=== PATIENT | female | born 1980 | race Two or more races ===

== ENCOUNTER 2017-06-12 17:32 | Emergency (ER) | payer OTHER ==
[~2017-06-12] VITALS: Ht 165.1 cm; Wt 70.0 kg
[2017-06-12 18:51] LABS: BASOPHILS # (AUTO) 0.02 x10^3/uL (0-0.1); BASOPHILS % (AUTO) 0 % (0-1); EOSINOPHILS # (AUTO) 0.04 x10^3/uL (0-0.4); EOSINOPHILS % (AUTO) 0 % (1-7); LYMPHOCYTES % (AUTO) 10 % (22-44); MD NO; MEAN CORPUSCULAR HEMOGLOBIN 21.5 pg (27.0-34.8); MEAN CORPUSCULAR HGB CONC 31.3 g/dL (32.4-35.8); MEAN CORPUSCULAR VOLUME 68.8 fL (80-100); MEAN PLATELET VOLUME 8.7 fL (7.4-10.4); MONOCYTES # (AUTO) 0.46 x10^3/uL (0.2-0.8); MONOCYTES % (AUTO) 4 % (2-9); NEUTROPHILS # (AUTO) 8.99 x10^3/uL (1.8-6.8); NEUTROPHILS % (AUTO) 86 % (42-75); PLATELET COUNT 417 x10^3/uL (130-400); RED BLOOD COUNT 4.17 x10^6/uL (3.82-5.3); RED CELL DISTRIBUTION WIDTH 17.3 % (9.6-15.2)
[2017-06-12 19:00] LABS: ALANINE AMINOTRANSFERASE 30 U/L (12-78); ALBUMIN 3.6 g/dL (3.4-5.0); ANION GAP 7 mmol/L (5-15); CALCIUM 8.5 mg/dL (8.5-10.1); CHLORIDE 108 mmol/L (98-107); CREATININE 0.51 mg/dL (0.55-1.02)
[2017-06-12 19:05] LABS: ALKALINE PHOSPHATASE 92 U/L (45-117); BILIRUBIN,TOTAL 0.3 mg/dL (0.2-1.0); TOTAL PROTEIN 7.9 g/dL (6.4-8.2)
[2017-06-12 21:02] LABS: CULTURE INDICATED? YES; MICROSCOPIC INDICATED
[2017-06-12] MEDS ORDERED: ACETAMINOPHEN 325 MG TABLET PO ONE (21:30)
[2017-06-12] MEDS ORDERED: ACETAMINOPHEN 325 MG TABLET ONE (21:58)
[2017-06-12 22:36] VITALS: BP 137/81
== END 2017-06-12 22:39 | disposition home or self-care (01) ==
LOC: ED 22:30
DX: O26.891 Other specified pregnancy related conditions, first trimester (principal); O34.80 Maternal care for other abnormalities of pelvic organs, unspecified trimester; N83.202 Unspecified ovarian cyst, left side
CPT/HCPCS: 36415; 76830; 80053; 81001; 83690; 84702; 85025; 86901; 87086; 99285

== ENCOUNTER 2018-07-12 19:23 | Emergency (ER) | payer SELFPAY ==
[~2018-07-12] VITALS: Ht 160 cm; Wt 70.9 kg
--- NOTE | 2018-07-12 19:38 | NUR ---
PT UP TO RR WITH STEADY GAIT, URINE CUP PROVIDED
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
[2018-07-12] MEDS ORDERED: KETOROLAC 30 MG/1 ML ONE (19:53)
--- NOTE | 2018-07-12 19:57 | NUR ---
PT MEDICATED PER MAR, PROVIDED PT WITH WARM BLANKET, CALL LIGHT WITHIN REACH, AWAITING ULTRASOUND AT THIS TIME
[2018-07-12 19:59] LABS: CULTURE INDICATED? YES; MICROSCOPIC INDICATED
[2018-07-12] MEDS ORDERED: KETOROLAC 30 MG/1 ML IM ONE (20:00)
[2018-07-12 20:04] LABS: ALANINE AMINOTRANSFERASE 31 U/L (12-78); ALBUMIN 3.7 g/dL (3.4-5.0); ANION GAP 9 mmol/L (5-15); CALCIUM 8.4 mg/dL (8.5-10.1); CHLORIDE 108 mmol/L (98-107); CREATININE 0.52 mg/dL (0.55-1.02)
[2018-07-12 20:08] LABS: ALKALINE PHOSPHATASE 111 U/L (45-117); BILIRUBIN,TOTAL 0.2 mg/dL (0.2-1.0); TOTAL PROTEIN 7.9 g/dL (6.4-8.2)
--- NOTE | 2018-07-12 20:26 | NUR ---
PT TO ULTRASOUND
[2018-07-12 20:27] LABS: MEAN CORPUSCULAR HEMOGLOBIN 20.1 pg (27.0-34.8); MEAN PLATELET VOLUME 9.1 fL (7.4-10.4); PLATELET COUNT 450 x10^3/uL (130-400); RED BLOOD COUNT 3.87 x10^6/uL (3.82-5.3); RED CELL DISTRIBUTION WIDTH 19.4 % (9.6-15.2)
[2018-07-12 20:30] LABS: MD YES
[2018-07-12 20:34] LABS: HEMOGRAM NOTE RECHECKED
[2018-07-12 20:35] LABS: EOS% (MANUAL) 0 % (1-7); SEG#(MANUAL) 10.37 x10^3/uL (1.8-6.8); SEGS% (MANUAL) 78 % (42-75)
[2018-07-12 20:36] LABS: BAND#(MANUAL) 0.27 x10^3/uL; BANDS%(MANUAL) 2 % (0-7); LYMPH#(MANUAL) 2.39 x10^3/uL (1-3.4); LYMPHS% (MANUAL) 18 % (22-44); MONOS#(MANUAL) 0.27 x10^3/uL (0.3-2.7); MONOS% (MANUAL) 2 % (2-9)
[2018-07-12 20:37] LABS: ANISOCYTOSIS 2+; HYPOCHROMIA 2+; MICROCYTOSIS 2+; POLYCHROMASIA 2+
[2018-07-12 20:38] LABS: <PLATELET ESTIMATE> ADEQUATE; <PLT MORPHOLOGY> NORMAL PLT MORPH
[2018-07-12] MEDS ORDERED: CEFDINIR 300 MG CAPSULE ONE (20:53)
[2018-07-12] MEDS ORDERED: CEFDINIR 300 MG CAPSULE PO ONE (21:00)
--- NOTE | 2018-07-12 21:10 | NUR ---
PT RESTING ON GURNEY, FAMILY AT BEDSIDE, PT STATED PAIN IS " A LITTLE BETTER", CALL LIGHT WITHIN REACH, MEDICATED PER MAR, AWAITING ULTRASOUND RESULT
[2018-07-12] MEDS ORDERED: MEDROXYPROGESTERONE ACETATE 5 MG TABLET PO ONE (21:30)
--- NOTE | 2018-07-12 21:39 | NUR ---
YELLOW SLIP SENT TO PHARMACY FOR MEDICATION
[2018-07-12 22:10] VITALS: BP 135/66
--- NOTE | 2018-07-12 22:11 | NUR ---
PT MEDICATED PER MAR
== END 2018-07-12 22:25 | disposition home or self-care (01) ==
LOC: ED 20:15
DX: N39.0 Urinary tract infection, site not specified (principal); D50.0 Iron deficiency anemia secondary to blood loss (chronic); N92.0 Excessive and frequent menstruation with regular cycle
CPT/HCPCS: 36415; 76830; 80053; 81001; 84703; 85025; 87086; 87147; 96372; 99284; J1885